=== PATIENT | male | born 1980 | race Caucasian/White ===

== ENCOUNTER 2021-01-17 08:12 | Emergency (ER) | payer SELFPAY ==
[2021-01-17 08:18] VITALS: BP 131/81; PULSE 84; TEMP 98; BMI 29.5
== END 2021-01-17 08:35 | disposition home or self-care (01) ==
LOC: FER 08:12
DX: T49.8X Poisoning by, adverse effect of and underdosing of other topical agents (principal)
CPT/HCPCS: 99281-25